=== PATIENT | female | born 1990 | race Caucasian/White ===

== ENCOUNTER 2016-09-06 18:55 | Emergency (ER) | payer OTHER ==
[~2016-09-06] VITALS: Ht 165.1 cm; Wt 136.0 kg
[2016-09-06 19:26] VITALS: BP 137/85; PULSE 89; RESP 18; O2SAT 99
--- NOTE | 2016-09-06 20:16 | ED.REPORT ---
HPI-Abd Pain F Under 41 Date of Service Sep 06, 2016 ED Provider: Rohan Banegas DO Pt is a 26 y.o. female who presents to the ED from c/o stabbing abdominal pain onset 1100 today. She reports associated nausea and denies vomiting. Pt states that she had eggs with tomatoes for breakfast but has been NPO since then due to pain. She believes it may be the hiatal hernia, seen on CT 1 year ago, that is causing her discomfort. Nursing Notes Stated Complaint: ABD PAIN Chief Complaint: Female Abdominal Pain Nursing Notes Reviewed: Yes Allergies: Coded Allergies: No Known Allergies (Verified Allergy, Unknown, 10/09/15) No Active Prescriptions or Reported Meds General Time Seen by MD: 20:15 Chief Complaint Abdominal pain Hx Obtained From: Patient Arrived By: Walk-in Sudden in Onset?: Yes Onset Occurred: 9 - 12 hours ago Symptom Duration: Since onset Location: : Diffuse: RUQ Quality: Painful Severity: Current: Moderate Severity: Maximum: Severe Recent Healthcare: No recent doctor visit, No recent hospitalization Past Medical History Past Medical History Reviewed, patient denies Past Surgical History Reports: Smoking History Current Some Day Smoker Ambulatory Status Independent Review of Systems Decrease PO intake GI: Reports: Abdominal pain, Nausea, Denies: Vomiting Complete sys rev & neg: except as marked. Physical Exam Initial Vital Signs Vital Signs (First) Date Time Temp Pulse Resp B/P Pulse Ox O2 Delivery O2 Flow Rate FiO2 09/06/16 19:26 36.2 89 18 137/85 99 Room Air Initial VS: Reviewed Head / Eyes: Atraumatic, Normocephalic Extremities: Vascular intact, Neuro intact Skin: Warm, Dry, No cyanosis Neurologic: Alert, Oriented, Nonfocal Psychiatric: Mood/affect normal, Behavior normal, Normal thought content General/Constitutional: Awake, Alert, Well appearing, Well developed, Well hydrated, Well nourished, Not toxic appearing Appearance / Presentation: Positive: Obese, Uncomfortable Respiratory / Chest: Atraumatic, Breath sounds NL, No respiratory distress Cardiovascular: Heart rate NL, Regular rhythm, Cap refill not delayed, Peripheral circulation NL Abdomen: Atraumatic, Soft, No guarding, No rebound, No distention Tenderness/Guarding/Rebound: Positive: Tender RUQ... Back: Atraumatic Interpretation & Diagnostics Lab Results Interpretation Result Diagram: 09/06/16201209/06/16 2013 Test 09/06/16 20:13 09/06/16 22:43 White Blood Count 9.7th/mm3 (3.8-10.1) Red Blood Count 4.36mil/mm3 (3.90-5.20) Hemoglobin 12.0g/dL (12.0-15.6) Hematocrit 38.3% (35.0-46.0) Mean Corpuscular Volume 87.8fL (81-100) Mean Corpuscular Hemoglobin 27.5pg (27.0-35.0) Mean Corpuscular Hemoglobin Concent 31.3% (32.0-37.0) Red Cell Distribution Width 13.8% (12.3-15.4) Platelet Count 391bil/L (150-400) Neutrophils (%) (Auto) 53.8% (40-74) Lymphocytes (%) (Auto) 36.3% (14-46) Monocytes (%) (Auto) 6.6% (4-12) Eosinophils (%) (Auto) 2.7% (0-5) Basophils (%) (Auto) 0.3% (0-3) Sodium Level 139mEq/L (134-144) Potassium Level 4.0mEq/L (3.5-5.2) Chloride Level 103mEq/L (97-108) Carbon Dioxide Level 22mmol/L (18-29) Blood Urea Nitrogen 14mg/dL (6-20) Creatinine 0.54mg/dL (0.57-1.00) Estimat Glomerular Filtration Rate 197mL/min (>59) Glucose Level 88mg/dL (60-99) Calcium Level 9.4mg/dL (8.5-10.1) Magnesium Level 2.1mg/dL (1.6-2.6) Total Bilirubin 0.2mg/dL (0.0-1.2) Aspartate Amino Transf (AST/SGOT) 21U/L (0-50) Alanine Aminotransferase (ALT/SGPT) 26U/L (0-32) Alkaline Phosphatase 74U/L (25-150) Total Protein 7.8g/dL (6.4-8.4) Albumin 4.6g/dL (3.4-5.0) Lipase 33U/L (13-60) Hold Steven Top Tube Received (Received) Urine Color Straw (YELLOW) Urine Appearance Cloudy (CLEAR,HAZY) Urine pH 6.0 (5.0-8.0) Urine Specific [place] 1.030 (1.003-1.035) Urine Protein Negativemg/dL (NEG,TRACE) Urine Glucose (UA) Negativemg/dL (NEGATIVE) Urine Ketones Negativemg/dL (NEGATIVE) Urine Occult Blood Large (NEGATIVE) Urine Nitrite Negative (NEGATIVE) Urine Bilirubin Negative (NEGATIVE) Urine Urobilinogen Normalmg/dL (NORMAL) Urine Leukocyte Esterase Negative (NEGATIVE) Urine RBC 11-50/hpf (0-2) Urine WBC 6-10/hpf (0-5) Urine Epithelial Cells Moderate/hpf (NONE-MOD) Urine Crystals None seen (NONE SEEN) Urine Bacteria Moderate/hpf (NONE-FEW) Urine Hyaline Casts None/lpf (NONE) Urine Granular Casts None seen (NONE SEEN) Urine Waxy Casts None seen (NONE SEEN) Urine Red Blood Cell Casts None seen (NONE SEEN) Urine White Blood Cell Casts None seen (NONE SEEN) Urine Mucus Present (None Seen) Urine Trichomonas None seen (NONE SEEN) Urine Yeast None (NONE SEEN) Urinalysis Comment None Urine Culture Reflexed Indicated US Focused Biliary CONCLUSION: No acute abnormality. Fatty infiltration of the liver. Radiologist: Azael Cardoso M.D. Re-Eval/Medical Decision Med Decision/Clinical Course Tender enough in the right upper quadrant ultrasound. Ultrasound did not show any acute abnormality. Laboratory work is reassuring. I discussed and recommended a CT scan. Anne is feeling better and she would like to go home. She does agree to follow-up closely and come back if she changes her mind about the CT of if she has any worsening pain. Short course of opiates provided for pain. Routine opiate and abdominal pain warnings are given. Source of Hx: Old records Re-Evaluation/Progress #1: Time of Eval: 22:09 Re-Evaluation/Progress Note: Pt rechecked. She states she is nervous for the US due to how tender the area is. Re-Evaluation/Progress #2: Time of Eval: 00:02 Re-Evaluation/Progress Note: Pt rechecked. Recommended CT imaging, pt declined and will follow-up with PCP. Discussed plan for discharge, pt understands and agrees with plan. Counseled Regarding: Diagnosis, Lab results, Need for follow-up, When/why to return to ED Discharge & Departure Primary Impression: Abdominal pain Abdominal location: right upper quadrant Qualified Code: R10.11 - Right upper quadrant pain Disposition: Home Discharge Condition All VS Reviewed: Yes Condition: Stable Additional Instructions: Take 1-2 [place] every 6 hours as needed for pain. Do not drink, drive, or take acetaminophen while taking [place]. Take 1 Zofran every 8 hours as needed for nausea. Take protonics once daily. You lab results and ultrasound were reassuring. No serious cause for you abdominal pain was found. A CT scan or endoscopy may be necessary. Call your primary care provider in the morning to schedule a follow-up appointment. Return immediately for increasing pain or if you change your mind about the CT scan. Referrals: Sean Warner MD (PCP) Scribe Attestation Portions of this note were transcribed by Alma Ramirez. I, Dr. Banegas personally performed the history, physical exam and medical decision-making; I reviewed and confirmed the accuracy of the information in the transcribed note. Signed by : Kalpana Fajardo, 09/07/16 and 0021. copies to: Sean Warner MD, Todd P DO Sep 06, 2016 20:16 ALMA RAMIREZ Sep 06, 2016 20:56
[2016-09-06 20:19] LABS: BASOPHILS % (AUTO) 0.3 % (0-3); EOSINOPHILS % (AUTO) 2.7 % (0-5); MONOCYTES % (AUTO) 6.6 % (4-12); Mean Corpuscular Hemoglobin 27.5 pg (27.0-35.0); Mean Corpuscular Volume 87.8 fL (81-100); NEUTROPHILS % (AUTO) 53.8 % (40-74); Platelet Count 391 bil/L (150-400)
[2016-09-06 20:38] LABS: Magnesium 2.1 mg/dL (1.6-2.6)
[2016-09-06] MEDS ORDERED: 0.9% Sodium Chloride 1,000 ML IV ONE (20:55)
[2016-09-06] MEDS ORDERED: Pantoprazole 4 mg/mL 10 mL Inj IVPUSH ONE (20:55)
[2016-09-06] MEDS ORDERED: HYDROmorphone 0.5 mg/0.5 mL iSecure Syringe IVPUSH PRN (20:55)
[2016-09-06 22:15] VITALS: BP 125/57; PULSE 72; RESP 16; O2SAT 100
[2016-09-06 23:01] LABS: APPEARANCE,URINE CLOUDY (CLEAR,HAZY); COLOR,URINE STRAW (YELLOW); OCCULT BLOOD,URINE LARGE (NEGATIVE); UROBILINOGEN,URINE NORMAL (NORMAL)
[2016-09-07] MEDS ORDERED: Pantoprazole 40 mg ER24 Tablet PO ONE (00:05)
[2016-09-07] MEDS ORDERED: _Ondansetron ODT 4 mg Tablet PO PRN (00:05)
[2016-09-07] MEDS ORDERED: _HYDROcodone/APAP 5-325 mg Tablet PO PRN (00:05)
--- NOTE | 2016-09-07 09:08 | DRSVH ---
PROCEDURE: US ABDOMEN ([id number]) INDICATIONS: ruq and epigastric pain, TECHNIQUE: Real-time scanning was performed of the abdominal and retroperitoneal organs, with image documentatio n. COMPARISON: None. FINDINGS: Liver: Liver is diffusely increased in echogenicity. No focal hepatic abnormalities identified. No rmal hepatic size. Gallbladder: Normal gallbladder. Biliary ducts: Intrahepatic bile ducts are non-dilated. Extrahepatic bile duct caliber measures 1.9 mm. Normal is 6-7 mm or less in diameter, or 10 mm or less post-cholecystectomy. Pancreas: Visualized portions of the pancreas are sonographically normal. Spleen: Spleen is normal in size and homogeneous in echotexture. Kidneys: Kidneys are normal in size and echotexture. Right kidney measures 13.1 cm long; left kidne y measures 13 cm long. No hydronephrosis or nephrolithiasis. No solid masses. Aorta: Visualized aorta is normal in caliber at less than 3 cm. Iliacs: Not visualized. IVC: Intrahepatic inferior vena cava is patent. Miscellaneous: No free abdominal fluid. IMPRESSION: 1. Increased hepatic echogenicity noted likely related to fatty infiltration of the liver but other s ources of hepatocellular disease cannot be excluded. Recommend clinical correlation. * Dictated by: Amish JOSEPH Interpreted: Candis Banks MD on 09/07/2016 at 8:41 Transcribed by: SHASTA on 09/07/2016 at 9:07 Approved by: Candis Banks MD, PhD on 09/07/2016 at 16:43
== END 2016-09-07 01:02 | disposition home or self-care (01) ==
LOC: SED 18:55
DX: R10.11 Right upper quadrant pain (principal); R11.0 Nausea; F17.200 Nicotine dependence, unspecified, uncomplicated
CPT/HCPCS: 36415; 76700; 80053; 81000; 81025; 83690; 83735; 85025; 87086; 87088; 87147; 96361; 96374; 96375; 99285; J1170; J7030

== ENCOUNTER 2016-12-19 12:50 | Emergency (ER) | payer OTHER ==
[~2016-12-19] VITALS: Ht 165.1 cm; Wt 136.4 kg
[2016-12-19 13:11] VITALS: BP 126/79; PULSE 88; RESP 16; O2SAT 98
[2016-12-19 14:58] LABS: BASOPHILS % (AUTO) 0.5 % (0-3); MONOCYTES % (AUTO) 6.7 % (4-12); Mean Corpuscular Volume 86.5 fL (81-100); NEUTROPHILS % (AUTO) 52.2 % (40-74); Platelet Count 380 bil/L (150-400)
[2016-12-19] MEDS ORDERED: 0.9% Sodium Chloride 1,000 ML IV ONE (15:26)
--- NOTE | 2016-12-19 15:26 | ED.REPORT ---
[facility]- Female Date of Service December 19, 2016 ED Provider: Weston Novak PA-C Anne is an otherwise healthy 26-year-old female with a chief complaint of vaginal bleeding. Patient reports a 6 history of intermittent, irregular sometimes heavy menstruation. 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 Shortly after finishing that course she developed very heavy bleeding with clots. Reports going bleeding through a pad every 1-2 hours. Associated with crampy bilateral lower abdominal pain, which has been managed with ibuprofen. She has had dizziness and one episode of presyncope. Denies syncope or falling. Denies vomiting, bowel changes, urinary symptoms, vaginal discharge. Denies use of oral contraception, IUD. Pelvic ultrasound performed in clinic last week. Nursing Notes Stated Complaint: HEAVY MENSTRUAL BLEED Chief Complaint: Female Abdominal Pain Nursing Notes Reviewed: Yes Allergies: Coded Allergies: No Known Allergies (Verified Allergy, Unknown, 12/19/16) No Active Prescriptions or Reported Meds General Time Seen by MD: 15:03 Chief Complaint Vaginal bleeding... Sudden in Onset?: No Past Medical History Past Medical History Reviewed, patient denies Past Surgical History Reports: Smoking History Current Some Day Smoker Ambulatory Status Independent Review of Systems General: Denies fever, chills, malaise. Respiratory: Denies dyspnea, cough, shortness of breath, wheezing. Cardiovascular: Denies chest pain, palpitations. Gastrointestinal: Denies vomiting, diarrhea, admits abdominal pain. Genitourinary: Denies frequency, urgency, dysuria. Otherwise as noted in HPI. Physical Exam General: Well appearing, well developed, obese, no acute distress. Head: Atraumatic, normocephalic. Eyes: No scleral icterus or injection. No discharge. Vision grossly intact. ENT: Voice clear, hearing grossly intact. Respiratory: Regular rate and rhythm. Breath sounds present, clear to auscultation and equal bilaterally. No respiratory distress. No increased work of breathing, speaks in complete sentences. Cardiovascular: Regular rate and rhythm, without murmur, gallop or rub. No pedal edema. Gastrointestinal: Obese abdomen with mild lower quadrant tenderness without guarding or rebound. Bowel sounds normoactive. Skin: Warm and dry. Pelvic: Normal external genitalia with notable bleeding. No discharge. No lesions. Blood and clots noted in vaginal vault, normal cervix without mass or lesions. Negative cervical motion tenderness, negative adnexal tenderness. Neurological: Grossly nonfocal. Psychological: Alert and oriented. Speech appropriate, linear and logical. Behavior appropriate. Initial Vital Signs Vital Signs (First) Date Time Temp Pulse Resp B/P Pulse Ox O2 Delivery O2 Flow Rate FiO2 12/19/16 13:11 37.4 88 16 126/79 98 Room Air Initial VS: Vital signs normal Interpretation & Diagnostics Interpretation & Diagnostics: negative Orthostatic vitals negative Lab Results Interpretation Result Diagram: 12/19/16 1450 12/19/16 1450 Test 12/19/16 14:50 12/19/16 18:57 White Blood Count 8.8th/mm3 (3.8-10.1) Red Blood Count 4.00mil/mm3 (3.90-5.20) Hemoglobin 10.8g/dL (12.0-15.6) Hematocrit 34.6% (35.0-46.0) Mean Corpuscular Volume 86.5fL (81-100) Mean Corpuscular Hemoglobin 27.0pg (27.0-35.0) Mean Corpuscular Hemoglobin Concent 31.2% (32.0-37.0) Red Cell Distribution Width 14.6% (12.3-15.4) Platelet Count 380bil/L (150-400) Neutrophils (%) (Auto) 52.2% (40-74) Lymphocytes (%) (Auto) 35.4% (14-46) Monocytes (%) (Auto) 6.7% (4-12) Eosinophils (%) (Auto) 5.0% (0-5) Basophils (%) (Auto) 0.5% (0-3) Sodium Level 141mEq/L (134-144) Potassium Level 4.1mEq/L (3.5-5.2) Chloride Level 106mEq/L (97-108) Carbon Dioxide Level 22mmol/L (18-29) Blood Urea Nitrogen 13mg/dL (6-20) Creatinine 0.50mg/dL (0.57-1.00) Estimat Glomerular Filtration Rate 215mL/min (>59) Glucose Level 96mg/dL (60-99) Calcium Level 8.9mg/dL (8.5-10.1) Total Bilirubin 0.2mg/dL (0.0-1.2) Aspartate Amino Transf (AST/SGOT) 18U/L (0-50) Alanine Aminotransferase (ALT/SGPT) 18U/L (0-32) Alkaline Phosphatase 57U/L (25-150) Total Protein 7.0g/dL (6.4-8.4) Albumin 4.0g/dL (3.4-5.0) Hold Steven Top Tube Received (Received) Hold Urine Received (Received) Re-Eval/Medical Decision Med Decision/Clinical Course Otherwise of 26-year-old female presents with a chief complaint of vaginal bleeding. Patient reports a history of intermittent occasionally heavy vaginal bleeding. Treated with a course of Provera her biomedical engineering internship. Discontinued roughly 5 days ago, vaginal bleeding began roughly 3 days ago. Patient reports bleeding through a pad every 1-2 hours. Reports episodes of dizziness and presyncope. Physical examination reveals mild tenderness in lower quadrants without guarding or rebound. Pelvic exam reveals bleeding and clots with no discharge, cervical motion tenderness or adnexal tenderness. Cervix appears normal and the os is closed. Orthostatic vital signs are normal. Urgency is negative. Ultrasound performed last week reveals thickened endometrium. CBC reveals mild anemia. I discussed this case with Dr. Knott. This point I believe this is the expected withdrawal bleeding from Provera and then reassured regarding mass, ectopic , ovarian torsion. The patient is mildly anemic but hemodynamically stable. I believe she is stable for discharge. Advise follow-up with gynecology tomorrow, provide emergency return precautions. Patient verbalizes understanding of and consent to the plan. Discharge & Departure Impression: Primary Impression: Vaginal bleeding Disposition: Home Discharge Condition All VS Reviewed: Yes Condition: Stable Additional Instructions: Evaluation in the emergency department for vaginal bleeding includes history, physical, blood work and test, all of which are reassuring this is unlikely to be caused by an immediately dangerous condition such as an ectopic . I believe this is the expected withdrawal bleeding from treatment with Provera. I believe you are stable and safe to be discharged home. Follow-up with your biomedical engineering internship tomorrow. Return to emergency department for any new or worsening symptoms including increasing bleeding, pain, racing heart, dizziness or loss of consciousness. Referrals: Jerry Stevenson MD EDSupervising Provider for APC: Sy Knott MD copies to: Jerry Stevenson MD, Seth PA-C December 19, 2016 15:26
[2016-12-19] MEDS ORDERED: Ondansetron 2 mg/mL 2 mL Inj IVPUSH ONE (15:30)
[2016-12-19 18:10] VITALS: BP_SYST 105; BP_SYST 116; BP_DIAS 57; PULSE 72; PULSE 80
[2016-12-19 18:11] VITALS: BP 108/57; PULSE 80
[2016-12-19 19:27] VITALS: BP 120/80; PULSE 90; RESP 16; O2SAT 99
== END 2016-12-19 19:28 | disposition home or self-care (01) ==
LOC: SED 12:50
DX: N93.9 Abnormal uterine and vaginal bleeding, unspecified (principal); R10.31 Right lower quadrant pain; R10.32 Left lower quadrant pain; R42 Dizziness and giddiness; R55 Syncope and collapse; F17.200 Nicotine dependence, unspecified, uncomplicated
CPT/HCPCS: 36415; 80053; 81025; 85025; 96361; 96374; 96375; 99285; J1885; J2405; J7030